=== PATIENT | female | born 1975 | race Caucasian/White ===

== ENCOUNTER 2017-09-25 08:32 | Emergency (ER) | payer MEDICARE ==
[~2017-09-25] VITALS: Ht 167.6 cm; Wt 82.6 kg
[2017-09-25] MEDS ORDERED: diazePAM 5 MG TABLET ONE (09:01)
[2017-09-25] MEDS ORDERED: ONDANSETRON ODT 4 MG TAB.RAPDIS PO ONE (09:20)
[2017-09-25] MEDS ORDERED: diazePAM 5 MG TABLET PO ONE (09:20)
[2017-09-25] MEDS ORDERED: methylPREDNISolone SOD SUCC PF 40 MG/ML VIAL. IM ONE (10:00)
--- NOTE | 2017-09-25 10:40 | PHYS DOC ---
Past History Past Medical History: Other Past Surgical History: , Tubal ligation, Other Alcohol Use: None Drug Use: None Adult General Chief Complaint Chief Complaint: BACK PAIN OR INJURY HPI HPI Patient is a 42 year old F who presents with chronic back pain that was worsened when she was sweeping the floor 3 days ago. At that time she felt that her pain acutely worsened. She describes constant gradually worsening sharp right-sided low back pain that radiates down the right leg to her foot. She denies numbness tingling or weakness. She denies bowel or bladder problems. She denies any other associated symptoms. She feels that her symptoms are worse with movement and improved with rest and positioning. She has no other exacerbating or alleviating factors. Review of Systems Review of Systems Constitutional: Denies fever or chills [] Eyes: Denies change in visual acuity, redness, or eye pain [] HENT: Denies nasal congestion or sore throat [] Respiratory: Denies cough or shortness of breath [] Cardiovascular: No additional information not addressed in HPI [] GI: Denies abdominal pain, nausea, vomiting, bloody stools or diarrhea [] : Denies dysuria or hematuria [] Musculoskeletal: Negative except history of present illness Integument: Denies rash or skin lesions [] Neurologic: Denies headache, focal weakness or sensory changes [] Endocrine: Denies polyuria or polydipsia [] All other systems were reviewed and found to be within normal limits, except as documented in this note. Family History Family History No pertinent family medical history was reported Current Medications Current Medications Current Medications Medications (Trade) Dose Ordered Sig/[facility] Start Time Stop Time Status Last Admin Dose Admin Diazepam (Valium) 5 mg STK-MED ONCE 09/25/17 09:01 09/25/17 09:02 DC Methylprednisolone Sodium Succinate (SOLU-Medrol 40MG VIAL) 40 mg 1X ONCE 09/25/17 10:00 09/25/17 10:01 DC 09/25/17 09:54 40 MG Ondansetron HCl (Zofran Odt) 4 mg 1X ONCE 09/25/17 09:20 09/25/17 09:21 DC Allergies Allergies Allergies Coded Allergies Type Severity Reaction Last Updated Verified No Known Drug Allergies 09/25/17 No Physical Exam Physical Exam Constitutional: Well developed, well nourished, no acute distress, non-toxic appearance. [] HENT: Normocephalic, atraumatic, Eyes: EOMI, conjunctiva normal, no discharge. [] Neck: Normal range of motion, no tenderness, supple, no stridor. [] Cardiovascular:Heart rate regular rhythm, Lungs & Thorax: Bilateral breath sounds clear to auscultation [] Abdomen: Bowel sounds normal, soft, no tenderness, no masses, no pulsatile masses. [] Skin: Warm, dry, no erythema, no rash. [] Back: Right lumbar paraspinal spasm Extremities: No tenderness, no cyanosis, no clubbing, ROM intact, no edema. [] Neurologic: Alert and oriented X 3, normal motor function, normal sensory function, no focal deficits noted. [] Psychologic: Affect normal, judgement normal, mood normal. [] Current Patient Data Vital Signs Vital Signs Date Time Temp Pulse Resp B/P (MAP) Pulse Ox O2 Delivery O2 Flow Rate FiO2 09/25/17 09:40 77 16 104/45 (64) 97 Room Air 09/25/17 08:35 97.8 EKG EKG [] Radiology/Procedures Radiology/Procedures [] Course & Med Decision Making Course & Med Decision Making Pertinent Labs and Imaging studies reviewed. (See chart for details) [] Dragon Disclaimer Dragon Disclaimer This electronic medical record was generated, in whole or in part, using a voice recognition dictation system. Departure Departure: Impression: Primary Impression: Back pain Disposition: HOME, SELF-CARE Condition: STABLE Referrals: LISETTE APODACA MD (PCP) Patient Instructions: Sciatica Additional Instructions: Carmella was seen in the emergency department for back and leg pain. No emergency medical condition was found on history or physical exam. She did have mild relief with medications in the emergency room. Her symptoms are most consistent with sciatica caused by muscle spasm. Piriformis syndrome was considered. She was advised follow-up with her primary care doctor in the next 1 -2 weeks for further management. Problem Qualifiers Primary Impression: Back pain Back pain location: back pain in unspecified location Chronicity: unspecified Back pain laterality: right Qualified Codes: M54.9 - Dorsalgia, unspecified KHADIJAH DONNELLY MD Sep 25, 2017 10:40
[2017-09-25 11:02] VITALS: BP 119/69
== END 2017-09-25 11:02 | disposition home or self-care (01) ==
LOC: ER 08:32
DX: G89.29 Other chronic pain (principal); M54.5 Low back pain; Z98.51 Tubal ligation status
CPT/HCPCS: 96372; 99283; J2920

== ENCOUNTER 2018-06-06 11:37 | Emergency (ER) | payer SELFPAY ==
[~2018-06-06] VITALS: Ht 170.2 cm; Wt 82.1 kg
[2018-06-06] MEDS ORDERED: hydrOXYzine HCL 25 MG TABLET PO STA (12:12)
[2018-06-06] MEDS ORDERED: PRED50TA PO (12:36)
[2018-06-06] MEDS ORDERED: HYDR25TA PO (12:36)
--- NOTE | 2018-06-06 12:36 | PHYS DOC ---
Past History Past Medical History: Other Past Surgical History: , Tubal ligation, Other Smoking: Non-smoker Alcohol Use: None Drug Use: None Adult General Chief Complaint Chief Complaint: SKIN PROBLEM HPI HPI Patient is a 42 year old female who presents with complaining of rash after she was exposed to poison lacey yesterday at her home while cutting menard. Patient complaining of rash in her right ear, neck, bilateral forearms and trunk with itching without fever and chills, shortness of breath, fever and chills. Patient states she had severe reaction to poison lacey previously. Review of Systems Review of Systems Constitutional: Denies fever or chills [] Eyes: Denies change in visual acuity, redness, or eye pain [] HENT: Denies nasal congestion or sore throat [] Respiratory: Denies cough or shortness of breath [] Cardiovascular: No additional information not addressed in HPI [] GI: Denies abdominal pain, nausea, vomiting, bloody stools or diarrhea [] : Denies dysuria or hematuria [] Musculoskeletal: Denies back pain or joint pain [] Integument: Reports rash and itching Neurologic: Denies headache, focal weakness or sensory changes [] Endocrine: Denies polyuria or polydipsia [] All other systems were reviewed and found to be within normal limits, except as documented in this note. Current Medications Current Medications Current Medications Medications (Trade) Dose Ordered Sig/Will Start Time Stop Time Status Last Admin Dose Admin Dexamethasone Sodium Phosphate (Decadron) 10 mg 1X ONCE 06/06/18 12:45 06/06/18 12:46 Hydroxyzine HCl (Atarax) 25 mg 1X STAT 06/06/18 12:12 06/06/18 12:24 DC Allergies Allergies Allergies Coded Allergies Type Severity Reaction Last Updated Verified No Known Drug Allergies 09/25/17 No Physical Exam Physical Exam Constitutional: Well developed, well nourished,mild distress, non-toxic appearance. [] HENT: Normocephalic, atraumatic Eyes: PERRLA, EOMI, conjunctiva normal, no discharge. [] Neck: Normal range of motion, no tenderness, supple, no stridor. [] Cardiovascular:Heart rate regular rhythm, no murmur [] Lungs & Thorax: Bilateral breath sounds clear to auscultation [] Skin: Warm, dry, erythematous rash in right ear, bilateral forearms, trunk without sign of infection Back: No tenderness, no CVA tenderness. [] Extremities: No tenderness, no cyanosis, no clubbing, ROM intact, no edema. [] Neurologic: Alert and oriented X 3, normal motor function, normal sensory function, no focal deficits noted. [] Psychologic: Affect normal, judgement normal, mood normal. [] Current Patient Data Vital Signs Vital Signs Date Time Temp Pulse Resp B/P (MAP) Pulse Ox O2 Delivery O2 Flow Rate FiO2 06/06/18 11:37 98.4 73 18 98 Room Air EKG EKG [] Radiology/Procedures Radiology/Procedures [] Course & Med Decision Making Course & Med Decision Making discharge: I've spoken with the patient and/or caregivers. I've explained the patient's condition, diagnosis and treatment plan based on information available to me at this time. I've answered the patient's and/or caregivers questions and addressed any concerns. The patient and/or caregivers have a good understanding the patient's diagnosis, condition and treatment plan as can be expected at this point. Vital signs have been stabilized. The patient's condition is stable for discharge from the emergency department. The patient will pursue further outpatient evaluation with her primary care provider or other designated consulting physician as outlined in the discharge instructions. Patient and/or caregivers are agreeable to this plan of care and follow-up instructions have been explained in detail. The patient and/or caregivers have received these instructions in written format and expressed understanding of these discharge instructions. The patient and her caregivers are aware that if any significant change in condition or worsening of symptoms should prompt him to immediately return to this of the closest emergency department. If an emergent department is not readily available I would encourage him to call 911. Naseem Disclaimer Lillianon Disclaimer This electronic medical record was generated, in whole or in part, using a voice recognition dictation system. Departure Departure: Impression: Primary Impression: Contact dermatitis due to poison lacey Disposition: HOME, SELF-CARE (at 1233) Condition: STABLE Referrals: LISETTE APODACA MD (PCP) Patient Instructions: Poison Lacey Additional Instructions: Drink plenty of liquids Follow-up with your primary care physician in 3-5 days Return to ER if not getting better May use [id number]-[id number] calamine or hydrocortisone ointment on the affected area Scripts Prednisone (PREDNISONE) 50 Mg Tablet 1 TAB PO DAILY for contact dermatitis, #7 TAB Prov: ERA AGUILAR MD 06/06/18 Hydroxyzine Hcl (HYDROXYZINE HCL) 25 Mg Tablet 1 TAB PO TID PRN for ITCHING, #30 TAB Prov: ERA AGUILAR MD 06/06/18 ERA GAUILAR MD Jun 06, 2018 12:36
[2018-06-06 12:41] VITALS: BP 143/77
[2018-06-06] MEDS ORDERED: DEXAMETHASONE SOD PHOS 10 MG/ML VIAL IM ONE (12:45)
== END 2018-06-06 12:42 | disposition home or self-care (01) ==
LOC: ER 11:37
DX: L25.5 Unspecified contact dermatitis due to plants, except food (principal)
CPT/HCPCS: 96372; 99283; J1100

== ENCOUNTER → 2021-06-06 | Outpatient (CLI) | payer OTHER ==
[~2021-06-06] MED LIST: HYDR25TA PO; PRED50TA PO
--- NOTE | 2021-06-06 12:05 | RAD ---
Three view lumbosacral spine History: Pain AP, coned-down lateral and lateral views of the lumbosacral spine were obtained. COMPARISON: June 03, 2007 There is mild dextroconvex curvature. The vertebral bodies aligned in the lateral view. There is no l oss of vertebral body stature. Intervertebral disc heights are preserved. There is mild marginal spur ring of the endplates. Impression: No acute findings. End Impression Electronically signed by: Edison Sanchez III, MD (06/06/2021 12:03 PM) [facility]
== END ==
LOC: RAD 09:18
PROVIDERS: ATTEND Internal Medicine
DX: M43.8X6 Other specified deforming dorsopathies, lumbar region (principal); M46.06 Spinal enthesopathy, lumbar region
CPT/HCPCS: 72100

== ENCOUNTER 2021-06-21 02:05 | Emergency (ER) | payer OTHER ==
[~2021-06-21] VITALS: Ht 170.2 cm; Wt 92.8 kg
[2021-06-21 02:17] VITALS: BP 148/82
[2021-06-21] MEDS ORDERED: oxyCODONE/APAP 5/325 1 TAB TABLET PO ONE (02:45)
[2021-06-21] MEDS ORDERED: diphenhydrAMINE HCL 25 MG CAPSULE PO ONE (02:45)
[2021-06-21] MEDS ORDERED: AMOXICILLIN/K CLAV 875/125MG TABLET. ONE (02:53)
[2021-06-21] MEDS ORDERED: AMOX1TAB61 PO (02:59)
--- NOTE | 2021-06-21 02:59 | PHYS DOC ---
Past History Past Medical History: Other Additional Past Medical Histor: chronic back pain Past Surgical History: , Tubal ligation, Other Additional Past Surgical Histo: 2 D&C Smoking: Non-smoker Alcohol Use: None Drug Use: None Adult General Chief Complaint Chief Complaint: EARACHE/EAR PAIN HPI HPI Patient is a 45-year-old female who was diagnosed with influenza yesterday who presents with right ear pain, 7 out of 10, sharp in nature that started last night. States he took some Tylenol at home with minimal relief. Denies any fevers, pain or trouble swallowing, chest pain, shortness of breath, abdominal pain, nausea, vomiting. Review of Systems Review of Systems Review of systems otherwise unremarkable except noted in HPI Current Medications Current Medications Current Medications Medications (Trade) Dose Ordered Sig/Will Start Time Stop Time Status Last Admin Dose Admin Diphenhydramine HCl (Benadryl) 50 mg 1X ONCE 06/21/21 02:45 06/21/21 02:46 DC Oxycodone/ Acetaminophen (Percocet 5/325) 2 tab 1X ONCE 06/21/21 02:45 06/21/21 02:46 DC Allergies Allergies Allergies Coded Allergies Type Severity Reaction Last Updated Verified No Known Drug Allergies 06/21/21 No Physical Exam Physical Exam Constitutional: Well developed, well nourished, no acute distress, non-toxic a ppearance. [] HENT: Normocephalic, atraumatic, bilateral external ears normal, right tympanic membrane red, bulging and opaque oropharynx moist, no oral exudates, nose normal. [] Eyes: conjunctiva normal, no discharge. [] Neck: Normal range of motion, no tenderness, supple, no stridor. [] Cardiovascular:Heart rate regular rhythm, no murmur [] Lungs & Thorax: Bilateral breath sounds clear to auscultation [] Neurologic: Alert and oriented X 3, normal motor function, normal sensory function, no focal deficits noted. [] Psychologic: Affect normal, judgement normal, mood normal. [] Current Patient Data Vital Signs Vital Signs Date Time Temp Pulse Resp B/P (MAP) Pulse Ox O2 Delivery O2 Flow Rate FiO2 06/21/21 02:17 97.9 78 18 148/82 (104) 100 EKG EKG [] Radiology/Procedures Radiology/Procedures [] Heart Score C/O Chest Pain: No Risk Factors: Risk Factors: DM, Current or recent (<one month) smoker, HTN, HLP, family history of CAD, obesity. Risk Scores: Risk Factors: DM, Current or recent (<one month) smoker, HTN, HLP, family history of CAD, obesity. Course & Med Decision Making Course & Med Decision Making Patient is a 45-year-old female presents with right ear pain Vital signs not concerning. Physical exam noted above. Started treatment for right otitis media. Given pain medicine. Discussed all findings with patient. Advised on symptom treatment at home. Advised to follow-up in the morning with primary care physician. Gave return precautions to the ED. Patient grateful, verbalized understanding and agreed with plan of discharge. Dragon Disclaimer [employer] Disclaimer This electronic medical record was generated, in whole or in part, using a voice recognition dictation system. Departure Departure: Impression: Primary Impression: Otitis media Disposition: HOME / SELF CARE / HOMELESS Condition: GOOD Referrals: LISETTE APODACA MD (PCP) Patient Instructions: Otitis Media, Adult Additional Instructions: Thank you for coming into the emergency department tonight and allowing us to take care of you. Please read the attached information carefully to go back ov er some of the things we discussed. Please take your antibiotics as prescribed and until gone. You can use Tylenol, ibuprofen and Benadryl as we discussed. Please use your prescription pain medicine only as needed and remember it also has Tylenol in it so try not to exceed 3000 mg of Tylenol a day and do not drink alcohol with these. Please call your doctor in the morning to update on ED visit and set up a follow-up. Please come back with new or concerning symptoms as discussed. Scripts Amoxicillin/Potassium Clav (AUGMENTIN 875-125 TABLET) 1 Each Tablet 1 TAB PO BID for otitis media for 10 Days, #19 TAB 0 Refills Prov: ZEKE CARLSON MD 06/21/21 ZEKE CARLSON MD Jun 21, 2021 02:59
[2021-06-21] MEDS ORDERED: AMOXICILLIN/K CLAV 875/125MG TABLET. PO ONE (03:00)
[2021-06-21] MEDS ORDERED: ACETAMINOPHEN/CODEINE 300/30MG 4TABLET STARTPACK. PO ONE ×2 (03:10→03:15)
== END 2021-06-21 03:15 | disposition home or self-care (01) ==
LOC: ER 02:05
DX: H66.91 Otitis media, unspecified, right ear (principal); G89.29 Other chronic pain; Z98.51 Tubal ligation status; Z98.890 Other specified postprocedural states
CPT/HCPCS: 99284; Q0163